=== PATIENT | male | born 1990 | race African-American/Black ===

== ENCOUNTER → 2018-12-28 | Outpatient (CLI) | payer OTHER ==
[~2018-12-28] MED LIST: BACTRIM DS TAB1 EACH PO; IBUPROFEN 800800 MG PO
== END ==
LOC: RAD 09:04
DX: S42.402A Unspecified fracture of lower end of left humerus, initial encounter for closed fracture (principal); X58.XXXA Exposure to other specified factors, initial encounter; Y93.89 Activity, other specified; Y92.89 Other specified places as the place of occurrence of the external cause; Y99.8 Other external cause status

== ENCOUNTER 2020-02-23 08:03 | Emergency (ER) | payer OTHER ==
[~2020-02-23] VITALS: Ht 195.6 cm; Wt 81.7 kg
[2020-02-23 08:05] VITALS: BP 139/83
[2020-02-23] MEDS ORDERED: MOBIC15 MG PO (08:37)
== END 2020-02-23 08:49 | disposition home or self-care (01) ==
LOC: ER 08:03
DX: S86.911A Strain of unspecified muscle(s) and tendon(s) at lower leg level, right leg, initial encounter (principal); S86.912A Strain of unspecified muscle(s) and tendon(s) at lower leg level, left leg, initial encounter; X58.XXXA Exposure to other specified factors, initial encounter; Y93.89 Activity, other specified; Y92.89 Other specified places as the place of occurrence of the external cause; Y99.0 Civilian activity done for income or pay